=== PATIENT | female | born 1960 | race American Indian/Alaskan Native ===

== ENCOUNTER 2018-11-14 08:37 | Emergency (ER) | payer SELFPAY ==
--- NOTE | 2018-11-14 10:14 | Emergency Department Report ---
ED General Adult HPI - General Chief complaint: Anxiety Stated complaint: FOLLOW UP Time Seen by Provider: 11/14/18 10:03 Source: patient Mode of arrival: Ambulatory Limitations: No Limitations - History of Present Illness Initial comments: Mrs. Feldman is a 58-year-old healthy female who presents with stress and anxiety. She arrived from [place] via [employer] bus this morning. Her son provided money for the travel. However, she ran out of money considering that the trip was 5 days instead of 3 days as she anticipated. She does not have any money. She does not have a place to stay. She has not eaten in 3 days. She was brought to EMS from the [facility]. She denies any physical complaints. She denies any significant past medical history. Denies suicidal ideation. She has living between [place] and [place]. She lives with friends in both states. However her friend in [place] is currently traveling. She has spoken with her son recently who lives in [place]. Son will send money. However she will not be able to receive the money in 1 week. 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 She is an author. She is here to settle debt with the publisher who owes her money. She requests consultation with social welfare research worker. - Related Data Allergies Allergy/AdvReac Type Severity Reaction Status Date / Time No Known Allergies Allergy Unverified 11/14/18 08:55 ED Review of Systems ROS: Stated complaint: FOLLOW UP Other details as noted in HPI Comment: All other systems reviewed and negative Constitutional: denies: fever, malaise Cardiovascular: denies: chest pain Gastrointestinal: denies: abdominal pain ED Past Medical Hx - Past Medical History Previous Medical History?: No - Surgical History Past Surgical History?: No - Social History Smoking Status: Never Smoker Substance Use Type: None ED Physical Exam - General Limitations: No Limitations General appearance: alert, in no apparent distress - Head Head exam: Present: atraumatic, normocephalic - Eye Eye exam: Present: normal appearance - ENT ENT exam: Present: mucous membranes moist - Neck Neck exam: Present: normal inspection. Absent: tenderness, meningismus - Respiratory Respiratory exam: Present: normal lung sounds bilaterally. Absent: respiratory distress, wheezes, rales, rhonchi - Cardiovascular Cardiovascular Exam: Present: regular rate, normal rhythm, normal heart sounds. Absent: systolic murmur, diastolic murmur, rubs, gallop - GI/Abdominal GI/Abdominal exam: Present: soft, normal bowel sounds. Absent: distended, tenderness, guarding, rebound - Extremities Exam Extremities exam: Present: normal inspection - Back Exam Back exam: Present: normal inspection - Neurological Exam Neurological exam: Present: alert, oriented X3 - Psychiatric Psychiatric exam: Present: normal affect, normal mood - Skin Skin exam: Present: warm, dry, intact, normal color. Absent: rash ED Course Vital Signs 11/14/18 11/14/18 11/14/18 08:43 08:51 10:29 Temperature 97.9 F 97.9 F Pulse Rate 97 H 98 H Respiratory 20 18 17 Rate Blood Pressure 125/63 125/63 O2 Sat by Pulse 95 96 100 Oximetry ED Medical Decision Making - Medical Decision Making Mrs. Feldman is a 58-year-old female who arrives today from [place] via [employer] bus. She requires food and [facility]. I have consulted our social welfare research worker case management counselor and treatment nurse. We provided Mrs. Feldman with resources. She will be discharged from the emergency department in stable condition. She appears to have a close acquaintance here in [facility]. She also does have access to her son in [facility] who can provide financial assistance. Mrs. Feldman does not had any medical conditions or acute psychiatric emergency which needs stabilization. She is quite intelligent and articulate with appropriate insight. Critical care attestation.: If time is entered above; I have spent that time in minutes in the direct care of this critically ill patient, excluding procedure time. ED Disposition Clinical Impression: Needs assistance with community resources, Stress and adjustment reaction Disposition: DC-01 TO HOME OR SELFCARE Is pt being admited?: No Does the pt Need Aspirin: No Condition: Stable Instructions: Stress (ED) Referrals: [facility] [Outside] - 3-5 Days [facility] [Outside] - 3-5 Days
== END 2018-11-14 11:01 | disposition home or self-care (01) ==
LOC: ED 08:37
DX: F43.9 Reaction to severe stress, unspecified (principal)
CPT/HCPCS: 99283